=== PATIENT | male | born 2000 | race Caucasian/White ===

== ENCOUNTER 2021-11-24 08:47 | Emergency (ER) | payer BC, SELFPAY ==
--- NOTE | 2021-11-24 08:52 | ED.NAVMDI ---
HPI - Nausea/Vomiting/Diarrhea General Chief complaint: Nausea/Vomiting/Diarrhea Stated complaint: Diarrhea Time Seen by Provider: 11/24/21 08:53 Source: patient and RN notes reviewed Mode of arrival: ambulatory History of Present Illness HPI Narrative: Patient is a 21-year-old male who presents the urgent care with complaints of nausea and diarrhea for the last 3 days. Patient states he feels much better today after taking what he thinks to be Pepto-Bismol [id number]. Patient states that he has been on a strict keto diet for approximately 2 years and his last meal prior to the diarrhea was salmon and salad. Patient states he has had some dry heaves but denies of any nausea or vomiting at this time. States that he has had intermittent abdominal cramping but currently denies abdominal pain. Patient denies any fevers. States that he is only had 1 loose stool in the last 12 hours. Main concern is going back to work and needing a work excuse. No other acute complaints. No acute distress noted. Patient aware of the plan of care. Some parts of this dictation were generated by voice recognition software and may contain typographical and/or grammatical inaccuracies. Related Data Home Medications Medication Instructions Recorded Confirmed No Home Medications 11/24/21 11/24/21 Allergies Allergy/AdvReac Type Severity Reaction Status Date / Time No Known Allergies Allergy Unknown Unverified 11/24/21 09:00 Review of Systems Review of Systems: CONSTITUTIONAL: Denies fever, chills, or sweats. EYES: Denies visual changes, redness, or discharge. ENT: Denies rhinorrhea, congestion, sore throat, or otalgia. CARDIOVASCULAR: Denies chest pain, palpitations, or edema. RESPIRATORY: Denies cough or dyspnea. GASTROINTESTINAL: Reports of intermittent nausea and diarrhea GENITOURINARY: Denies dysuria or hematuria. SKIN: Denies rash or itching. MUSCULOSKELETAL: Denies back pain, joint pain, or myalgia. NEUROLOGIC: Denies headache, numbness, or weakness. All other systems reviewed are negative, except as documented in HPI. PMFSH Comments At the time of my signature, I reviewed and agree with the nursing past medical, surgical, social, and family history. There is no relevant family history pertinent to the patient complaint. Exam Narrative: GENERAL: This is a well-nourished, well-developed patient, in no apparent distress. HEAD: normocephalic, atraumatic. EYES: PERRL. Sclera clear/white. Vision is grossly intact. EARS: External ears normal NOSE: External nose normal with no obvious nasal discharge, nares without redness, no rhinorrhea. THROAT: Mucous membranes moist NECK: Neck supple CARDIOVASCULAR: Regular rate and rhythm without murmurs, gallops, or rubs. RESPIRATORY: Clear to auscultation. Breath sounds equal bilaterally. No wheezes, rales, or rhonchi. GASTROINTESTINAL: Abdomen soft, mild umbilical tenderness on palpation nondistended. Bowel sounds are hyperactive. No guarding. SKIN: warm, intact with no suspicious lesions or rash, good texture and turgor. NEURO: awake, alert, and oriented to person, place and time. There were no obvious focal neurologic abnormalities. EXTREMITIES: No clubbing, cyanosis, or edema. Course Course Level of Care: Express Care Visit Vital Signs Vital signs: Vital Signs Temperature 98.3 F 11/24/21 09:01 Pulse Rate 55 L 11/24/21 09:01 Respiratory Rate 16 11/24/21 09:01 Blood Pressure 144/77 H 11/24/21 09:01 Pulse Oximetry 100 11/24/21 09:01 Oxygen Delivery Room Air 11/24/21 09:01 Temperature 98.3 F 11/24/21 09:01 Pulse Rate 55 L 11/24/21 09:01 Respiratory Rate 16 11/24/21 09:01 Blood Pressure 144/77 H 11/24/21 09:01 Pulse Oximetry 100 11/24/21 09:01 Oxygen Delivery Room Air 11/24/21 09:01 Reviewed-patient is informed that they may have pre-hypertension or hypertension based on a blood pressure reading in the department. I recommend the patient call th
[2021-11-24 09:01] VITALS: BP 144/77; PULSE 55; RESP 16; TEMP 36.8; O2SAT 100
== END 2021-11-24 09:13 | disposition home or self-care (01) ==
PROVIDERS: Emergency Provider Nurse Practitioner Family
DX: K52.9 Noninfective gastroenteritis and colitis, unspecified (principal)
CPT/HCPCS: 99211; G0463

== ENCOUNTER 2023-02-06 15:44 | Emergency (ER) | payer BC, OTHER, SELFPAY ==
--- NOTE | ~2023-02-06 | XR_ITS ---
XR knee LT min 4V 02/06/2023 16:24 INDICATION: Left knee pain PROCEDURE: 5 views left COMPARISON: No prior studies for comparison. FINDINGS: Fracture, dislocation or subluxation is not identified. No joint effusion. The soft tissues appear within normal limits. No foreign bodies are identified. IMPRESSION: 1: NO ACUTE BONE OR JOINT ABNORMALITY IDENTIFIED. Reviewed, dictated and finalized at location B.
--- NOTE | ~2023-02-06 | XR_ITS ---
EXAMINATION: XR shoulder LT min 2V DATE: 02/06/2023 16:22 INDICATION: Left shoulder injury and pain. TECHNIQUE: 4 views of left shoulder were obtained. COMPARISON: None. FINDINGS: Bone alignment is normal. No fracture. Joint spaces are normal. IMPRESSION: 1. Normal left shoulder. Reviewed, dictated and finalized at location A. IMPRESSION: 1. Normal left shoulder.
[2023-02-06 15:52] VITALS: BP 175/72; PULSE 74; RESP 20; TEMP 36.9; O2SAT 100
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
== END 2023-02-06 16:50 | disposition home or self-care (01) ==
PROVIDERS: Emergency Provider Nurse Practitioner Family
DX: S83.92XA Sprain of unspecified site of left knee, initial encounter (principal); S43.402A Unspecified sprain of left shoulder joint, initial encounter; V28.49XA Other motorcycle driver injured in noncollision transport accident in traffic accident, initial encounter
CPT/HCPCS: 73030; 73564; 99214; G0463

== ENCOUNTER 2023-04-13 13:07 | Emergency (ER) | payer BC, OTHER, SELFPAY ==
[2023-04-13 13:23] VITALS: BP 136/63; PULSE 68; RESP 16; TEMP 36.4; O2SAT 98
--- NOTE | 2023-04-13 13:38 | ED.EYEPROB ---
HPI - Eye Problem General Chief complaint: Eye Problems Stated complaint: Left Eye Problem Source: patient and RN notes reviewed History of Present Illness HPI Narrative: 22 yo M presents to urgent care with complaints of left eye irritation. Pt states this started 2 mornings ago and he thought it was allergies. Pt took his contact out yesterday and has been putting OTC eye gtts in. Denies any visual disturbance, eye pain, or eye drainage. Denies any fevers or chills. Related Data Allergies Allergy/AdvReac Type Severity Reaction Status Date / Time No Known Allergies Allergy Unknown Unverified 04/13/23 13:38 Review of Systems Review of Systems: CONSTITUTIONAL: Denies fever, chills, or sweats. EYES: Denies visual changes. ENT: Denies otalgia and sore throat CARDIOVASCULAR: Denies chest pain, palpitations, or edema. RESPIRATORY: Denies cough or dyspnea. GASTROINTESTINAL: Denies abdominal pain, nausea, vomiting, or diarrhea. GENITOURINARY: Denies dysuria or hematuria. SKIN: Denies rash or itching. MUSCULOSKELETAL: Denies back pain, joint pain, or myalgia. NEUROLOGIC: Denies headache, numbness, or weakness. Pertinent positives per HPI. PMFSH Comments At the time of my signature, I reviewed and agree with the nursing past medical, surgical, social, and family history. There is no relevant family history pertinent to the patient complaint. Exam Narrative: GENERAL: This is a well-nourished, well-developed patient, in no apparent distress. HEAD: normocephalic, atraumatic. EYES: Left Sclera mildly erythemic. Vision is grossly intact. Left lower conjunctiva mildly injected. EARS: External ears normal, auditory canals clear and without drainage, TMs normal without perforation. Hearing grossly intact. NOSE: External nose normal with no obvious nasal discharge, nares without redness, no rhinorrhea. THROAT: Mucous membranes moist, posterior pharynx clear. NECK: Neck supple, non-tender without lymphadenopathy, masses or thyromegaly. CARDIOVASCULAR: Regular rate RESPIRATORY: No respiratory distress SKIN: warm, intact with no suspicious lesions or rash, good texture and turgor. NEURO: awake, alert, and oriented to person, place and time. There were no obvious focal neurologic abnormalities. Course Course Level of Care: Express Care Visit Vital Signs Vital signs: Vital Signs Temperature 97.6 F 04/13/23 13:23 Pulse Rate 68 04/13/23 13:23 Respiratory Rate 16 04/13/23 13:23 Blood Pressure 136/63 04/13/23 13:23 Pulse Oximetry 98 04/13/23 13:23 Oxygen Delivery Room Air 04/13/23 13:23 Temperature 97.6 F 04/13/23 13:23 Pulse Rate 68 04/13/23 13:23 Respiratory Rate 16 04/13/23 13:23 Blood Pressure 136/63 04/13/23 13:23 Pulse Oximetry 98 04/13/23 13:23 Oxygen Delivery Room Air 04/13/23 13:23 reviewed MDM - Eye Problem MDM Narrative Medical decision making narrative: Your exam today shows Conjunctivitis, You have been given a prescription for eye drops. Use the eye drops as instructed. If you are not better in two (2) days, you need to follow up with an jacket preparer. Do not rub the eye or put anything else in the eye, this can cause abrasions (scratches) on the eye or lead to vision loss. Also it is important not to touch the tube or tip of drops to the eye, as this can cause further infection. Wash your hands very well before instilling the medication. Handwashing can help prevent the spread of disease. Follow up with PCP in 7-10 days Return to ER for problems Contact [facility] if you need an Security Assessor Differential Diagnosis Differential diagnosis: Likely corneal abrasion, conjunctivitis and acute iritis Critical Care Time Critical Care Time Critical Care Time: No Discharge Plan Discharge Clinical Impression: Conjunctivitis Qualifiers: Conjunctivitis type: unspecified Laterality: left Qualified Code(s): H10.9 - Unspecified conjunctiviti
== END 2023-04-13 13:40 | disposition home or self-care (01) ==
PROVIDERS: Emergency Provider Nurse Practitioner Family
DX: H10.9 Unspecified conjunctivitis (principal)
CPT/HCPCS: 99213; G0463